=== PATIENT | female | born 1965 | race Caucasian/White ===

== ENCOUNTER 2019-04-24 11:35 | Emergency (ER) | payer BC, OTHER ==
[2019-04-24 11:43] VITALS: BP 151/101; TEMP 98.7
[2019-04-24] MEDS ORDERED: diphenhydrAMINE 50 MG/ML 1 ML VIAL IVP STA (11:58)
--- NOTE | 2019-04-24 13:15 | ED ---
General Adult HPI - General Chief complaint: Recheck/Abnormal Lab/Rx Stated complaint: Allergic reaction Time Seen by Provider: 04/24/19 11:46 Source: patient Mode of arrival: ambulatory Limitations: no limitations - History of Present Illness Initial comments: Patient is a 54-year-old female presenting to emergency Department complaints of swelling of her top and that started early this morning. Patient states she was seen in urgent care 2 days ago for bronchitis and was given a Medrol Dosepak to start. Patient states she took the first day's worth yesterday and the swelling started today. Patient states she is not taking any other new medications or new foods. Patient states she's never had an ALLERGIC reaction like this before. Patient denies any fever, chills, difficulty breathing, chest pain, throat pain, rashes, hives. Patient has no other complaints at this time. Patient states she has not taken any medication for this. Upon arrival to the ER, vital signs are stable. - Related Data Previous Rx's Medication Instructions Recorded Azithromycin [Zithromax Z-pack] 0 mg PO DIRECTED #1 pack 04/24/19 Allergies Allergy/AdvReac Type Severity Reaction Status Date / Time codeine Allergy Unknown Verified 04/24/19 11:38 Review of Systems ROS Statement: Those systems with pertinent positive or pertinent negative responses have been documented in the HPI. ROS Other: All systems not noted in ROS Statement are negative. Past Medical History Additional Past Medical History / Comment(s): CVA 2010 History of Any Multi-Drug Resistant Organisms: None Reported Past Surgical History: Appendectomy, Section, Tonsillectomy Past Psychological History: No Psychological Hx Reported Smoking Status: Never smoker Past Alcohol Use History: Occasional Past Drug Use History: None Reported General Exam - General Exam Comments Initial Comments: GENERAL: Well-appearing, well-nourished and in no acute distress. HEAD: Atraumatic, normocephalic. EYES: Pupils equal round and reactive to light, extraocular movements intact, sclera anicteric, conjunctiva are normal. ENT: TMs normal, nares patent, oropharynx clear without exudates. Moist mucous membranes. Tongue is mildly swollen. NECK: Normal range of motion, supple without lymphadenopathy or JVD. LUNGS: Breath sounds clear to auscultation bilaterally and equal. No wheezes rales or rhonchi. HEART: Regular rate and rhythm without murmurs, rubs or gallops. ABDOMEN: Soft, nontender, normoactive bowel sounds. No guarding, no rebound. No masses appreciated. : Deferred EXTREMITIES: Normal range of motion, no pitting or edema. No clubbing or cyanosis. NEUROLOGICAL: Cranial nerves II through XII grossly intact. Normal speech, normal gait. PSYCH: Normal mood, normal affect. SKIN: Warm, Dry, normal turgor, no rashes or lesions noted. Limitations: no limitations Course Vital Signs 04/24/19 04/24/19 11:39 13:25 Temperature 98.7 F Pulse Rate 106 H 90 Respiratory 18 16 Rate Blood Pressure 151/101 O2 Sat by Pulse 94 L Oximetry Medical Decision Making - Medical Decision Making Patient is a 54-year-old female presenting with a possible ALLERGIC reaction to her Medrol Dosepak. Patient has a slightly swollen tongue. Patient was given 50 mg of Benadryl IV and reports improvement in her symptoms. Patient's vital signs remained stable and she has no difficulty in breathing or swallowing. Patient is drinking water without difficulty. Patient is stable for discharge at this time. Recommended to patient to continue with Benadryl today and tomorrow and to follow up with her PCP tomorrow. Patient will be given a Z-Justo for her ongoing bronchitis and will not continue with the Medrol Dosepak. Patient is in agreement with this plan of care. Return parameters were discussed with the patient she verbalized understanding. Case discussed with Dr. Cannon. Disposition Clinical Impression: Mild tongue swelling Disposition: HOME SELF-CARE Condition: Stable Instructions (If sedation given, give patient instructions): General Allergic Reaction (ED) Additional Instructions: Please return to the Emergency Department if symptoms worsen or any other concerns. Continue taking Benadryl for the next 48 hours as discussed. Take antibiotic as prescribed. Follow-up with PCP tomorrow. Prescriptions: Azithromycin [Zithromax Z-pack] 0 mg PO DIRECTED #1 pack Is patient prescribed a controlled substance at d/c from ED?: No Referrals: Jose Luis Ricketts MD [Primary Care Provider] - 1-2 days
[2019-04-24 13:26] VITALS: PULSE 90; RESP 16
== END 2019-04-24 13:28 | disposition home or self-care (01) ==
LOC: EC 11:35
DX: K14.8 Other diseases of tongue (principal); Z86.73 Personal history of transient ischemic attack (TIA), and cerebral infarction without residual deficits; Z88.5 Allergy status to narcotic agent
CPT/HCPCS: 99283; 96374; J1200

== ENCOUNTER 2019-05-29 13:32 | Emergency (ER) | payer OTHER ==
[2019-05-29 13:43] VITALS: RESP 18
[2019-05-29] MEDS ORDERED: AMOXIC-POT CLAV 875MG STARTER 2 EACH TABLET PO STA (14:09)
[2019-05-29] MEDS ORDERED: DIPH,PERTUS(ACELL)TETVAC-LF 0.5 ML VIAL IM ONE (14:09)
--- NOTE | 2019-05-29 14:11 | ED ---
Animal Bite HPI - General Chief Complaint: Animal Bite Stated Complaint: dog bite on hand Time Seen by Provider: 05/29/19 14:03 Source: patient Mode of arrival: ambulatory Limitations: no limitations - History of Present Illness Initial Comments: 54-year-old female presenting today for chief complaint of right hand laceration after dog bite. Patient states she attempted to break up a fight between her 2 dogs. She is unsure which one. Her states that one is old and has loose teeth. Patient states that she sustained a laceration on her hand the ventral aspect near the space between the index finger and thumb. Patient states the bleeding is controlled however she is unsure of her last tetanus. Patient states she was told by the fire department that she may need to come to the emergency room for suture repair. Patient denies any other areas laceration. Patient denies any other injuries or complaints. Patient denies any penicillin ALLERGIES. Patient BP noted to be elevated on arrival, no complaints such as chest pain, headache, SOB, leg swelling, nausea, abdominal pain, back pain. Patient refused BP treatment stating she will take home meds when she is home, she forgot to take them with the "excitement going on" this morning. - Related Data Previous Rx's Medication Instructions Recorded Azithromycin [Zithromax Z-pack] 0 mg PO DIRECTED #1 pack 04/24/19 Amoxicillin/Potassium Clav 1 tab PO Q12HR 7 Days #14 tab 05/29/19 [Augmentin 875-125 Tablet] Allergies Allergy/AdvReac Type Severity Reaction Status Date / Time codeine Allergy Unknown Verified 05/29/19 13:44 Review of Systems ROS Statement: Those systems with pertinent positive or pertinent negative responses have been documented in the HPI. ROS Other: All systems not noted in ROS Statement are negative. Past Medical History Past Medical History: COPD, CVA/TIA, Hyperlipidemia, Hypertension Additional Past Medical History / Comment(s): CVA 2011 History of Any Multi-Drug Resistant Organisms: None Reported Past Surgical History: Appendectomy, Section, Tonsillectomy Past Psychological History: No Psychological Hx Reported Smoking Status: Current every day smoker Past Alcohol Use History: Occasional Past Drug Use History: None Reported General Exam Limitations: no limitations Course Vital Signs 05/29/19 13:39 Temperature 99.6 F Pulse Rate 83 Respiratory 18 Rate Blood Pressure 180/133 O2 Sat by Pulse 95 Oximetry Procedures - Laceration Laceration #1 Consent Obtained: verbal consent Indication: laceration Site: hand Size (cm): 2 Description: linear Depth: simple, single layer Pre-repair: wound explored, irrigated extensively, deep structures intact Type of Sutures: nylon Size of Sutures: 5-0 Number of Sutures: 3 (very loosely approximated) Technique: simple, interrupted Patient Tolerated Procedure: well, no complications Additional Comments: Patient was offered local anesthetic however she states she would like to perform procedure without, no lidocaine used. pateint tolerated procedure well with minimal bleeding < 1 cc Medical Decision Making - Medical Decision Making 34-year-old female presenting today for dog bite. Patient had a gaping wound between the index finger and thumb of blood with any movement opened up. Shannan ent preferred suture I did discuss the risk of infection with closure of a dog bite. Patient with a to proceed. 3. Loosely approximated sutures were placed to help control bleeding and the gaping of wound. Patient had no foreign body, tetanus updated, wound was cleansed extensively prior to closure and bandaged after, and patient started on antibiotics-Augmentin and signs of infection discussed, as well as suture care and return parameters. Patient verbalized understanding and patient was discharged appearing well. Disposition Clinical Impression: Dog bite, Hand laceration Disposition: HOME SELF-CARE Condition: Good Instructions (If sedation given, give patient instructions): Animal Bite (ED) Additional Instructions: Please use medication as discussed. Please follow-up with family doctor in the next 2 days, for wound check. Return for removal of the 1 suture in 7 days. Please return to emergency room if the symptoms increase or worsen or for any other concerns-redness, increasing pain/swellling or drainage, fever. Prescriptions: Amoxicillin/Potassium Clav [Augmentin 875-125 Tablet] 1 tab PO Q12HR 7 Days #14 tab Is patient prescribed a controlled substance at d/c from ED?: No Referrals: Jose Luis Ricketts MD [Primary Care Provider] - 1-2 days Time of Disposition: 14:10
--- NOTE | 2019-05-29 14:48 | XR ---
EXAMINATION TYPE: XR hand limited RT DATE OF EXAM: 05/29/2019 COMPARISON: NONE HISTORY: 54-year-old female rule out foreign body (tooth) after dog bite TECHNIQUE: 2 views FINDINGS: No acute fracture, subluxation, or dislocation. No retained radiopaque foreign body identified. IMPRESSION: No retained radiopaque foreign body identified. No acute osseous abnormality seen.
[2019-05-29 15:39] VITALS: BP 174/115; PULSE 84; TEMP 99
== END 2019-05-29 15:32 | disposition home or self-care (01) ==
LOC: EC 13:32
DX: S61.411A Laceration without foreign body of right hand, initial encounter (principal); I10 Essential (primary) hypertension; F17.200 Nicotine dependence, unspecified, uncomplicated; Z23 Encounter for immunization; Z88.5 Allergy status to narcotic agent; Z86.73 Personal history of transient ischemic attack (TIA), and cerebral infarction without residual deficits; W54.0XXA Bitten by dog, initial encounter
CPT/HCPCS: 12001; 90471; 90715; 99283

== ENCOUNTER 2020-02-13 07:57 | Emergency (ER) | payer OTHER ==
[2020-02-13] MEDS ORDERED: MORPHINE SULFATE 4 MG/ML SYRINGE IM STA (08:10)
[2020-02-13] MEDS ORDERED: KETOROLAC 15 MG/ML 1 ML VIAL IM STA (08:11)
--- NOTE | 2020-02-13 08:13 | ED ---
Upper Extremity HPI - General Chief Complaint: Extremity Injury, Upper Stated Complaint: fall, shoulder injury Time Seen by Provider: 02/13/20 08:05 Source: patient, RN notes reviewed, old records reviewed Mode of arrival: ambulatory Limitations: no limitations - History of Present Illness Initial Comments: Patient 4-year-old female presents the ER today for evaluation with complaints of left shoulder pain. Patient reports that she tripped down on the stairs on her shoe and fell down approximately 7 steps on her left shoulder. Patient states that she will do this at 11:00 last night. Patient states that she has some pain with range of motion of the elbow and shoulder. Patient reports that she's had no previous injuries to this arm. Patient denies chest pain shortness of breath. Patient denies head or neck injury. - Related Data Home Medications Medication Instructions Recorded Confirmed Acetaminophen Tab [Tylenol Tab] 1,000 mg PO Q6HR PRN 02/13/20 02/13/20 Amitriptyline HCl [Elavil] 150 mg PO HS 02/13/20 02/13/20 Citalopram Hydrobromide [CeleXA] 60 mg PO DAILY 02/13/20 02/13/20 Ipratropium/Albuter 20-100Mcg 1 puff INHALATION RT-QID PRN 02/13/20 02/13/20 [Combivent Respimat 20-100Mcg Inhaler] Lisinopril-Hctz 20-25 mg 1 tab PO DAILY 02/13/20 02/13/20 [Zestoretic 20-25] Simvastatin [Zocor] 40 mg PO HS 02/13/20 02/13/20 amLODIPine [Norvasc] 5 mg PO DAILY 02/13/20 02/13/20 Previous Rx's Medication Instructions Recorded HYDROcodone/APAP 5-325MG [Scuddy 1 tab PO Q6HR PRN 3 Days #12 tab 02/13/20 5-325] Ibuprofen [Motrin] 600 mg PO Q6HR PRN #20 tab 02/13/20 Allergies Allergy/AdvReac Type Severity Reaction Status Date / Time codeine Allergy Unknown Verified 02/13/20 09:14 Review of Systems ROS Statement: Those systems with pertinent positive or pertinent negative responses have been documented in the HPI. ROS Other: All systems not noted in ROS Statement are negative. Past Medical History Past Medical History: COPD, CVA/TIA, Hyperlipidemia, Hypertension Additional Past Medical History / Comment(s): CVA 2010 History of Any Multi-Drug Resistant Organisms: None Reported Past Surgical History: Appendectomy, Section, Tonsillectomy Past Psychological History: No Psychological Hx Reported Smoking Status: Current every day smoker Past Alcohol Use History: Occasional Past Drug Use History: None Reported General Exam Limitations: no limitations General appearance: alert, in no apparent distress Head exam: Present: atraumatic, normocephalic, normal inspection Eye exam: Present: normal appearance, PERRL, EOMI. Absent: scleral icterus, conjunctival injection, periorbital swelling ENT exam: Present: normal exam, mucous membranes moist Neck exam: Present: normal inspection. Absent: tenderness, meningismus, lymphadenopathy Respiratory exam: Present: normal lung sounds bilaterally. Absent: respiratory distress, wheezes, rales, rhonchi, stridor Cardiovascular Exam: Present: regular rate, normal rhythm, normal heart sounds. Absent: systolic murmur, diastolic murmur, rubs, gallop, clicks GI/Abdominal exam: Present: soft, normal bowel sounds. Absent: distended, tenderness, guarding, rebound, rigid Left Shoulder Exam: Present: tenderness, swelling. Absent: normal inspection Upper Arm exam: Present: full ROM. Absent: normal inspection Elbow exam: Absent: normal inspection, full ROM Forearm Wrist exam: Present: normal inspection, full ROM Course Vital Signs 02/13/20 02/13/20 08:00 09:03 Temperature 98.5 F Pulse Rate 107 H 80 Respiratory 16 18 Rate Blood Pressure 177/116 119/68 O2 Sat by Pulse 96 98 Oximetry Procedures - Orthopedic Splinting/Casting Injury #1 Side: left Upper Extremity Injury Location: elbow Upper Extremity Immobilizer: sling/shoulder immobilizer, posterior splint, Gokul wrap, synthetic pre-padded splint Additional Comments: Patient was reevaluated neurovascularly intact. Medical Decision Making - Medical Decision Making Patient is a pleasant 54-year-old female who presents to the ER today for elbow shoulder pain after falling on the stairs. Denies any head or neck pain. Patient has evidence of left elbow fracture on x-ray. Also mentioned concern for left sixth rib fracture. Patient will receive chest x-ray. He was placed in a posterior splint. She is Intact. Chest was placed in a sling as I discussed with the pain with shoulder range of motion she likely injured her rotator cuff as well. Patient advised close orthopedic follow-up. She is given incentive spirometer for rib x-ray. 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 - Radiology Data Radiology results: report reviewed Evidence of left radial head fracture. No fracture dislocation left shoulder. Correlate with for history of left sixth rib fracture. Chest x-ray shows no acute cardio primary process. No acute displaced left- sided rib fractures. Suspect chronic posterior lateral left sixth rib fracture. Disposition Clinical Impression: Fall, Elbow fracture, left, Rotator cuff injury, Rib fracture Disposition: HOME SELF-CARE Condition: Good Instructions (If sedation given, give patient instructions): Elbow Fracture (ED), Rib Fracture (ED) Additional Instructions: Please use medication as discussed. should take frequent deep breaths to avoid developing pneumonia with evidence of rib fractures on x-ray. Patient should remain in the sling and splint until seen by orthopedic. Please return to the emergency room if your symptoms increase or worsen or for any other concerns. Prescriptions: Ibuprofen [Motrin] 600 mg PO Q6HR PRN #20 tab PRN Reason: Pain HYDROcodone/APAP 5-325MG [Scuddy 5-325] 1 tab PO Q6HR PRN 3 Days #12 tab PRN Reason: Pain Is patient prescribed a controlled substance at d/c from ED?: Yes If prescribed controlled substance>3 days was MAPS reviewed?: Prescribed <3 Days If opioid is for acute pain is fill amount 7 days or less?: Yes If Rx opioid, was Start Talking consent form obtained?: Yes Referrals: Jose Luis Ricketts MD [Primary Care Provider] - 1-2 days Darius Wright PAC [PHYSICIAN MENTAL HEALTH COORDINATOR] - 1-2 days Time of Disposition: 09:21
--- NOTE | 2020-02-13 08:55 | XR ---
Left shoulder HISTORY: Trauma and pain 3 views of the left shoulder Bone mineralization, joint spaces and alignment are maintained. Left lung apex as visualized is lon l. There is a fracture of the posterior left sixth rib with bayonet apposition which shows probable h ealing. IMPRESSION: No fracture or dislocation within the shoulder, correlate for history of left 6th rib fra cture.
--- NOTE | 2020-02-13 08:57 | XR ---
Left elbow HISTORY: Left elbow pain 3 views of the left elbow There is a radial head fracture present without significant displacement or depression. There is soft tissue swelling and a joint effusion. Small ossific density is present medially at the elbow measuri ng 3 mm which is indeterminate, no definite donor site. IMPRESSION: Left radial head fracture
[2020-02-13 09:44] VITALS: PULSE 80; RESP 18
--- NOTE | 2020-02-13 09:48 | XR ---
EXAMINATION TYPE: XR ribs LT w pa chest xray DATE OF EXAM: 02/13/2020 CLINICAL HISTORY: Chest and left-sided rib pain after fall injury. TECHNIQUE: Single frontal view of the chest is obtained. A frontal and oblique images the left-sided ribs are acquired. COMPARISON: None FINDINGS: There is chronic parenchymal changes bilaterally without suspicious focal air space opacit y, pleural effusion, or pneumothorax seen. The cardiac silhouette size is within normal limits. Frac ture deformity left posterolateral sixth rib. Dedicated images of left-sided ribs suggests subacute or chronic fracture posterior lateral left sixt h rib. Chronic age is favored. No acute displaced left-sided rib fractures are present. Overlying sof t tissue is unremarkable.. IMPRESSION: 1. No acute cardiopulmonary process. 2. No acute displaced left-sided rib fractures. Suspect chronic posterolateral lateral left sixth rib fracture.
[2020-02-13 10:08] VITALS: BP 141/91; TEMP 97.8
== END 2020-02-13 10:05 | disposition home or self-care (01) ==
LOC: EC 07:57
DX: S52.125A Nondisplaced fracture of head of left radius, initial encounter for closed fracture (principal); S22.32XA Fracture of one rib, left side, initial encounter for closed fracture; E78.5 Hyperlipidemia, unspecified; J44.9 Chronic obstructive pulmonary disease, unspecified; I10 Essential (primary) hypertension; F17.200 Nicotine dependence, unspecified, uncomplicated; Z79.899 Other long term (current) drug therapy; Z88.5 Allergy status to narcotic agent; Z86.73 Personal history of transient ischemic attack (TIA), and cerebral infarction without residual deficits; W10.9XXA Fall (on) (from) unspecified stairs and steps, initial encounter; Y92.009 Unspecified place in unspecified non-institutional (private) residence as the place of occurrence of the external cause
CPT/HCPCS: 71101; 73030; 73080; 99284; 96372 ×2; 29105; J2270; J1885

== ENCOUNTER 2021-03-21 16:04 | Emergency (ER) | payer OTHER ==
[2021-03-21 16:47] VITALS: TEMP 98.2
--- NOTE | 2021-03-21 19:50 | ED ---
General Adult HPI - General Chief complaint: Arrhythmia/Palpitations Stated complaint: Heart racing, light headed Time Seen by Provider: 03/21/21 19:25 Source: patient, RN notes reviewed, old records reviewed Mode of arrival: wheelchair Limitations: no limitations - History of Present Illness Initial comments: 56-year-old well-appearing female presents to the emergency room with complaints of palpitations and lightheadedness. Patient states that she's been under incredible amount of stress at home and her landlord is talking about evicting her sending text messages to been having increased palpitations. She states that she's been out of her medications for high blood pressure since January. She has been smoking a pack and a half a day. She denies any chest pain or shortness of breath. She does have a history of an intracranial bleed, stroke in 2010, COPD, hypertension. She states that she's also been having diarrhea every time she eats. She denies any hematochezia or hematemesis. She denies any fevers. She did get the coronavirus vaccine -: days(s) (5) Location: head, chest Severity scale (1-10): 5 Quality: aching Consistency: intermittent Improves with: other (Lying backward) Worsens with: other (Sitting up) Associated Symptoms: headaches (Diarrhea), other - Related Data Home Medications Medication Instructions Recorded Confirmed Acetaminophen Tab [Tylenol Tab] 1,000 mg PO Q6HR PRN 02/13/20 02/13/20 Amitriptyline HCl [Elavil] 150 mg PO HS 02/13/20 02/13/20 Citalopram Hydrobromide [CeleXA] 60 mg PO DAILY 02/13/20 02/13/20 Ipratropium/Albuter 20-100Mcg 1 puff INHALATION RT-QID PRN 02/13/20 02/13/20 [Combivent Respimat 20-100Mcg Inhaler] Simvastatin [Zocor] 40 mg PO HS 02/13/20 02/13/20 Previous Rx's Medication Instructions Recorded HYDROcodone/APAP 5-325MG [[place] 1 tab PO Q6HR PRN 3 Days #12 tab 02/13/20 5-325] Ibuprofen [Motrin] 600 mg PO Q6HR PRN #20 tab 02/13/20 Lisinopril-Hctz 20-25 mg 1 tab PO DAILY 30 Days #30 tab 03/21/21 [Zestoretic 20-25] amLODIPine [Norvasc] 5 mg PO DAILY 30 Days #30 tab 03/21/21 Allergies Allergy/AdvReac Type Severity Reaction Status Date / Time codeine Allergy Unknown Verified 03/21/21 16:45 Review of Systems ROS Statement: Those systems with pertinent positive or pertinent negative responses have been documented in the HPI. ROS Other: All systems not noted in ROS Statement are negative. Past Medical History Past Medical History: COPD, CVA/TIA, Hyperlipidemia, Hypertension Additional Past Medical History / Comment(s): CVA 2011 History of Any Multi-Drug Resistant Organisms: None Reported Past Surgical History: Appendectomy, Section, Tonsillectomy Past Psychological History: No Psychological Hx Reported Smoking Status: Current every day smoker Past Alcohol Use History: Occasional Past Drug Use History: None Reported General Exam Limitations: no limitations General appearance: alert, in no apparent distress Head exam: Present: atraumatic, normocephalic, normal inspection Eye exam: Present: normal appearance, EOMI ENT exam: Present: normal exam, normal oropharynx, mucous membranes moist Neck exam: Present: normal inspection, full ROM. Absent: tenderness, meningismus, lymphadenopathy Respiratory exam: Present: normal lung sounds bilaterally. Absent: respiratory distress, wheezes, rales, rhonchi, stridor, chest wall tenderness, accessory mus josué use Cardiovascular Exam: Present: regular rate, normal rhythm, normal heart sounds. Absent: systolic murmur, diastolic murmur, rubs, gallop, clicks GI/Abdominal exam: Present: soft, normal bowel sounds. Absent: distended, tenderness, guarding, rebound, rigid Back exam: Absent: tenderness, CVA tenderness (R), CVA tenderness (L) Neurological exam: Present: alert, oriented X3 Psychiatric exam: Present: anxious Skin exam: Present: warm, dry, intact, normal color. Absent: rash, cyanosis, diaphoretic Course Vital Signs 03/21/21 03/21/21 03/21/21 16:45 21:56 23:17 Temperature 98.2 F Pulse Rate 84 81 98 Respiratory 18 20 Rate Blood Pressure 213/105 194/106 194/108 O2 Sat by Pulse 100 94 L Oximetry EKG Findings - EKG Results: EKG: sinus rhythm (Ventricular rate 79, [place] interval 0.120, QRS 0.78, QTC 0.463) Medical Decision Making - Medical Decision Making This is a well-appearing 56-year-old female, alert and oriented 4, complaining of palpitations with increased stress at home. Patient states that she was getting aggressive threats for eviction from her landlord which was causing her to have palpitations. She also states that she's been out of her blood pressure medication since January and has not followed up with her primary care do ctor. She states that she's having transportation problems to get to appointments. She was given her prescribed medications in addition to hydralazine in the emergency room. Troponin is 0.012, no acute changes on her EKG. Chest x-ray shows no acute cardiopulmonary disease or pleural effusion. Cardiac mediastinum are normal. Case discussed with Dr. Faith. - Lab Data Result diagrams: 03/21/21 20:25 03/21/21 20:25 Lab Results 03/21/21 03/21/21 03/21/21 Range/Units 20:25 20:25 20:25 WBC 10.3 (3.8-10.6) k/uL RBC 5.69 H (3.80-5.40) m/uL Hgb 18.5 H (11.4-16.0) gm/dL Hct 53.4 H (34.0-46.0) % MCV 93.9 (80.0-100.0) fL MCH 32.6 (25.0-35.0) pg MCHC 34.7 (31.0-37.0) g/dL RDW 12.6 (11.5-15.5) % Plt Count 227 (150-450) k/uL MPV 9.4 Neutrophils % 63 % Lymphocytes % 27 % Monocytes % 5 % Eosinophils % 1 % Basophils % 1 % Neutrophils # 6.4 (1.3-7.7) k/uL Lymphocytes # 2.8 (1.0-4.8) k/uL Monocytes # 0.5 (0-1.0) k/uL Eosinophils # 0.1 (0-0.7) k/uL Basophils # 0.1 (0-0.2) k/uL PT 10.8 (9.0-12.0) sec INR 1.0 (<1.2) APTT 24.5 (22.0-30.0) sec Sodium 136 L (137-145) mmol/L Potassium 3.6 (3.5-5.1) mmol/L Chloride 104 (98-107) mmol/L Carbon Dioxide 21 L (22-30) mmol/L Anion Gap 11 mmol/L BUN 6 L (7-17) mg/dL Creatinine 0.61 (0.52-1.04) mg/dL Est GFR (CKD-EPI)AfAm >90 (>60 ml/min/1.73 sqM) Est GFR (CKD-EPI)NonAf >90 (>60 ml/min/1.73 sqM) Glucose 98 (74-99) mg/dL Calcium 9.5 (8.4-10.2) mg/dL Magnesium 2.0 (1.6-2.3) mg/dL Total Bilirubin 0.9 (0.2-1.3) mg/dL AST 104 H (14-36) U/L ALT 87 H (4-34) U/L Alkaline Phosphatase 105 (38-126) U/L Troponin I (0.000-0.034) ng/mL Total Protein 8.3 H (6.3-8.2) g/dL Albumin 4.5 (3.5-5.0) g/dL 03/21/ Range/Units 20:25 WBC (3.8-10.6) k/uL RBC (3.80-5.40) m/uL Hgb (11.4-16.0) gm/dL Hct (34.0-46.0) % MCV (80.0-100.0) fL MCH (25.0-35.0) pg MCHC (31.0-37.0) g/dL RDW (11.5-15.5) % Plt Count (150-450) k/uL MPV Neutrophils % % Lymphocytes % % Monocytes % % Eosinophils % % Basophils % % Neutrophils # (1.3-7.7) k/uL Lymphocytes # (1.0-4.8) k/uL Monocytes # (0-1.0) k/uL Eosinophils # (0-0.7) k/uL Basophils # (0-0.2) k/uL PT (9.0-12.0) sec INR (<1.2) APTT (22.0-30.0) sec Sodium (137-145) mmol/L Potassium (3.5-5.1) mmol/L Chloride (98-107) mmol/L Carbon Dioxide (22-30) mmol/L Anion Gap mmol/L BUN (7-17) mg/dL Creatinine (0.52-1.04) mg/dL Est GFR (CKD-EPI)AfAm (>60 ml/min/1.73 sqM) Est GFR (CKD-EPI)NonAf (>60 ml/min/1.73 sqM) Glucose (74-99) mg/dL Calcium (8.4-10.2) mg/dL Magnesium (1.6-2.3) mg/dL Total Bilirubin (0.2-1.3) mg/dL AST (14-36) U/L ALT (4-34) U/L Alkaline Phosphatase (38-126) U/L Troponin I <0.012 (0.000-0.034) ng/mL Total Protein (6.3-8.2) g/dL Albumin (3.5-5.0) g/dL Disposition Clinical Impression: Palpitations, Hypertension Disposition: HOME SELF-CARE Condition: Good Instructions (If sedation given, give patient instructions): Heart Palpitations (ED), Hypertension (ED) Additional Instructions: Take medications as prescribed and follow-up with the primary care doctor this week. Return to the emergency room with any new or worsening symptoms including increased chest pain or shortness of breath. Prescriptions: amLODIPine [Norvasc] 5 mg PO DAILY 30 Days #30 tab Lisinopril-Hctz 20-25 mg [Zestoretic 20-25] 1 tab PO DAILY 30 Days #30 tab Is patient prescribed a controlled substance at d/c from ED?: No Referrals: Jose Luis Ricketts MD [Primary Care Provider] - 1-2 days Time of Disposition: 00:28
[2021-03-21] MEDS ORDERED: amLODIPine 5 MG TAB PO STA (19:52)
--- NOTE | 2021-03-21 20:33 | XR ---
EXAMINATION TYPE: XR chest 2V DATE OF EXAM: 03/21/2021 COMPARISON: 02/13/2020 HISTORY: Dysrhythmia TECHNIQUE: FINDINGS: Heart and mediastinum are normal. Lungs are clear. Diaphragm is normal. There is old left s zuleyka healed rib fracture. There is no pleural effusion. There are chest leads. IMPRESSION: No active cardiopulmonary disease. No change.
[2021-03-21 20:35] LABS: Basophils # (A) 0.1 k/uL (0-0.2); Basophils % (A) 1 %; Eosinophils # (A) 0.1 k/uL (0-0.7); Eosinophils % (A) 1 %; HCT 53.4 % (34.0-46.0); HGB 18.5 gm/dL (11.4-16.0); Lymphocytes # (A) 2.8 k/uL (1.0-4.8); Lymphocytes % (A) 27 %; MCH 32.6 pg (25.0-35.0); MCHC 34.7 g/dL (31.0-37.0); MCV 93.9 fL (80.0-100.0); Mean Platelet Volume 9.4; Monocytes # (A) 0.5 k/uL (0-1.0); Monocytes % (A) 5 %; Neutrophils # (A) 6.4 k/uL (1.3-7.7); Neutrophils % (A) 63 %; Platelet Count 227 k/uL (150-450); RBC 5.69 m/uL (3.80-5.40); RDW 12.6 % (11.5-15.5); WBC 10.3 k/uL (3.8-10.6)
[2021-03-21 20:41] LABS: ALT 87 U/L (4-34); AST 104 U/L (14-36); African American GFR (CKD) >90 (>60 ml/min/1.73 sqM); Albumin 4.5 g/dL (3.5-5.0); Alkaline Phosphatase 105 U/L (38-126); Anion Gap 11 mmol/L; Blood Urea Nitrogen 6 mg/dL (7-17); Calcium 9.5 mg/dL (8.4-10.2); Carbon Dioxide 21 mmol/L (22-30); Chloride 104 mmol/L (98-107); Glucose 98 mg/dL (74-99); Non-African American GFR(CKD) >90 (>60 ml/min/1.73 sqM); Partial Thromboplastin Time 24.5 sec (22.0-30.0); Potassium 3.6 mmol/L (3.5-5.1); Prothrombin Time 10.8 sec (9.0-12.0); Sodium 136 mmol/L (137-145); Total Bilirubin 0.9 mg/dL (0.2-1.3); Total Protein 8.3 g/dL (6.3-8.2)
[2021-03-21] MEDS ORDERED: hydrALAZINE HCL 20 MG/ML 1 ML VIAL IVP STA ×2 (21:56→22:46)
[2021-03-21] MEDS ORDERED: LISINOPRIL-HCTZ 20-25 MG 1 EACH TAB PO STA (22:47)
[2021-03-21] MEDS ORDERED: LORazepam 2 MG/ML INJ IV STA (23:27)
[2021-03-22 03:48] VITALS: BP 126/64; PULSE 100; RESP 18
== END 2021-03-22 04:38 | disposition home or self-care (01) ==
LOC: EC 16:04
DX: R00.2 Palpitations (principal); I10 Essential (primary) hypertension; E78.5 Hyperlipidemia, unspecified; J44.9 Chronic obstructive pulmonary disease, unspecified; F17.200 Nicotine dependence, unspecified, uncomplicated; Z88.5 Allergy status to narcotic agent; Z86.73 Personal history of transient ischemic attack (TIA), and cerebral infarction without residual deficits; Z90.49 Acquired absence of other specified parts of digestive tract; Z90.89 Acquired absence of other organs
CPT/HCPCS: 99285; 96374; 96375; 96376; 93005; 80053; 83735; 84484; 85025; 85610; 85730; 71046; J2060; J0360

== ENCOUNTER 2021-06-23 20:05 | Emergency (ER) | payer OTHER ==
[2021-06-23 20:58] VITALS: TEMP 97.9
[2021-06-23] MEDS ORDERED: SODIUM CHLORIDE 0.9% 1,000 ML IV STA (21:25)
[2021-06-23] MEDS ORDERED: SODIUM CHLORIDE 0.9% 500 ML 500 ML IV STA (21:25)
--- NOTE | 2021-06-23 21:31 | ED ---
Female Urogenital HPI - General Chief complaint: Vaginal Bleeding Stated complaint: Back pain,Irregular vaginal bleeding Time Seen by Provider: 06/23/21 21:15 Source: patient Mode of arrival: ambulatory Limitations: no limitations - History of Present Illness Initial comments: This patient is a 56-year-old woman who presents here to be evaluated tonight after syncopal episode. The patient relates she was last in her usual state of health proximally 2 days ago. On Sunday morning she woke up and she noted she was having some right lower back pain. She states that it was cramping and aching. Proximally 20 hours ago she started to have vaginal bleeding. She states she passed moderate amount of blood with some clots as well. She went back to bed and then the bleeding recurred around 5 PM. She states that subsequent only she went back to use the bathroom and she passed out while she was on the phone talking with her daughter. She did not note chest pain, dyspnea. No vomiting or diarrhea. MD Complaint: vaginal bleeding Onset/Timin -: hour(s) Location: other (Back) Severity: moderate Quality: cramping Consistency: constant Improves with: none Worsens with: none Associated Symptoms: vaginal bleeding, syncope - Related Data Home Medications Medication Instructions Recorded Confirmed Acetaminophen Tab [Tylenol Tab] 500 mg PO Q6HR PRN 02/13/20 06/23/21 Amitriptyline HCl [Elavil] 50 mg PO HS 02/13/20 06/23/21 Citalopram Hydrobromide [CeleXA] 40 mg PO DAILY 02/13/20 06/23/21 Ipratropium/Albuter 20-100Mcg 2 puff INHALATION RT-QID PRN 02/13/20 06/23/21 [Combivent Respimat 20-100Mcg Inhaler] Simvastatin [Zocor] 40 mg PO HS 02/13/20 06/23/21 Furosemide [Lasix] 20 mg PO DAILY 06/23/21 06/23/21 amLODIPine [Norvasc] 10 mg PO DAILY 06/23/21 06/23/21 Previous Rx's Medication Instructions Recorded Lisinopril-Hctz 20-25 mg 1 tab PO DAILY 30 Days #30 tab 03/21/21 [Zestoretic 20-25] Allergies Allergy/AdvReac Type Severity Reaction Status Date / Time codeine Allergy Unknown Verified 06/23/21 22:10 Review of Systems ROS Statement: Those systems with pertinent positive or pertinent negative responses have been documented in the HPI. ROS Other: All systems not noted in ROS Statement are negative. Constitutional: Denies: fever, chills Respiratory: Denies: cough, dyspnea Cardiovascular: Reports: syncope. Denies: chest pain, palpitations Gastrointestinal: Denies: abdominal pain, nausea, vomiting, diarrhea Genitourinary: Reports: as per HPI, abnormal menses. Denies: dysuria, hematuria Musculoskeletal: Reports: as per HPI, back pain Skin: Denies: rash Neurological: Denies: headache, weakness, numbness Past Medical History Past Medical History: COPD, CVA/TIA, Hyperlipidemia, Hypertension Additional Past Medical History / Comment(s): CVA 2010 History of Any Multi-Drug Resistant Organisms: None Reported Past Surgical History: Appendectomy, Section, Tonsillectomy Past Psychological History: No Psychological Hx Reported Smoking Status: Current every day smoker Past Alcohol Use History: Occasional Past Drug Use History: None Reported General Exam Limitations: no limitations General appearance: alert, in no apparent distress Head exam: Present: atraumatic, normocephalic Eye exam: Present: normal appearance. Absent: scleral icterus, conjunctival injection ENT exam: Present: normal oropharynx Neck exam: Present: normal inspection Respiratory exam: Present: normal lung sounds bilaterally. Absent: respiratory distress, wheezes, rales, rhonchi, stridor Cardiovascular Exam: Present: regular rate, normal rhythm, normal heart sounds. Absent: systolic murmur, diastolic murmur, rubs, gallop GI/Abdominal exam: Present: soft. Absent: distended, tenderness, guarding, rebound, rigid, mass Extremities exam: Present: normal inspection, normal capillary refill. Absent: pedal edema, calf tenderness Back exam: Present: normal inspection. Absent: CVA tenderness (R), CVA tenderness (L) Neurological exam: Present: alert Skin exam: Present: warm, dry, intact, normal color. Absent: rash Course Vital Signs 06/23/21 06/23/21 06/23/21 20:55 22:48 23:28 Temperature 97.9 F Pulse Rate 98 74 79 Respiratory 20 18 18 Rate Blood Pressure 105/64 131/81 128/83 O2 Sat by Pulse 98 97 96 Oximetry 06/24/21 00:36 Temperature Pulse Rate 84 Respiratory 18 Rate Blood Pressure 171/106 O2 Sat by Pulse 96 Oximetry Medical Decision Making - Lab Data Result diagrams: 06/23/21 22:00 06/23/21 22:00 Lab Results 06/23/21 06/23/21 06/23/21 Range/Units 20:50 22:00 22:00 WBC 15.2 H (3.8-10.6) k/uL RBC 3.99 (3.80-5.40) m/uL Hgb 13.0 (11.4-16.0) gm/dL Hct 39.4 (34.0-46.0) % MCV 98.7 (80.0-100.0) fL MCH 32.6 (25.0-35.0) pg MCHC 33.1 (31.0-37.0) g/dL RDW 13.0 (11.5-15.5) % Plt Count 229 (150-450) k/uL MPV 9.7 Neutrophils % 86 % Lymphocytes % 10 % Monocytes % 2 % Eosinophils % 0 % Basophils % 0 % Neutrophils # 13.0 H (1.3-7.7) k/uL Lymphocytes # 1.5 (1.0-4.8) k/uL Monocytes # 0.4 (0-1.0) k/uL Eosinophils # 0.1 (0-0.7) k/uL Basophils # 0.1 (0-0.2) k/uL PT 10.5 (9.0-12.0) sec INR 1.0 (<1.2) APTT 22.1 (22.0-30.0) sec Sodium (137-145) mmol/L Potassium (3.5-5.1) mmol/L Chloride (98-107) mmol/L Carbon Dioxide (22-30) mmol/L Anion Gap mmol/L BUN (7-17) mg/dL Creatinine (0.52-1.04) mg/dL Est GFR (CKD-EPI)AfAm (>60 ml/min/1.73 sqM) Est GFR (CKD-EPI)NonAf (>60 ml/min/1.73 sqM) Glucose (74-99) mg/dL Calcium (8.4-10.2) mg/dL Troponin I (0.000-0.034) ng/mL Blood Type Blood Type Confirm O Negative Blood Type Recheck Bld Type Recheck Status Antibody Screen Spec Expiration Date 06/23/21 06/23/21 06/23/21 Range/Units 22:00 22:00 22:00 WBC (3.8-10.6) k/uL RBC (3.80-5.40) m/uL Hgb (11.4-16.0) gm/dL Hct (34.0-46.0) % MCV (80.0-100.0) fL MCH (25.0-35.0) pg MCHC (31.0-37.0) g/dL RDW (11.5-15.5) % Plt Count (150-450) k/uL MPV Neutrophils % % Lymphocytes % % Monocytes % % Eosinophils % % Basophils % % Neutrophils # (1.3-7.7) k/uL Lymphocytes # (1.0-4.8) k/uL Monocytes # (0-1.0) k/uL Eosinophils # (0-0.7) k/uL Basophils # (0-0.2) k/uL PT (9.0-12.0) sec INR (<1.2) APTT (22.0-30.0) sec Sodium 133 L (137-145) mmol/L Potassium 4.7 (3.5-5.1) mmol/L Chloride 107 (98-107) mmol/L Carbon Dioxide 18 L (22-30) mmol/L Anion Gap 8 mmol/L BUN 9 (7-17) mg/dL Creatinine 0.66 (0.52-1.04) mg/dL Est GFR (CKD-EPI)AfAm >90 (>60 ml/min/1.73 sqM) Est GFR (CKD-EPI)NonAf >90 (>60 ml/min/1.73 sqM) Glucose 135 H (74-99) mg/dL Calcium 8.6 (8.4-10.2) mg/dL Troponin I <0.012 (0.000-0.034) ng/mL Blood Type O Negative Blood Type Confirm Blood Type Recheck No Previous Record Bld Type Recheck Status CABO Indicated Antibody Screen NEGATIVE Spec Expiration Date 06/26/2021 - 2299 - EKG Data -: EKG Interpreted by Me EKG shows normal: sinus rhythm, intervals (Normal), ST-T waves (Possible inferior ischemia.) Rate: normal (Rate 90 bpm) Disposition Clinical Impression: Uterine mass, Post-menopausal bleeding Disposition: HOME SELF-CARE Condition: Good Instructions (If sedation given, give patient instructions): Dysfunctional Uterine Bleeding (ED) Additional Instructions: As we discussed, follow-up with the sanding line operator to have further evaluation of the mass on the uterus. Return here if there is any difficulty with this plan or any new symptoms develop. Is patient prescribed a controlled substance at d/c from ED?: No Referrals: Larry Sandra MD [Primary Care Provider] - 1-2 days Mirian Oneil MD [STAFF PHYSICIAN] - 1-2 days
[2021-06-23 22:12] LABS: Basophils # (A) 0.1 k/uL (0-0.2); Basophils % (A) 0 %; Eosinophils # (A) 0.1 k/uL (0-0.7); Eosinophils % (A) 0 %; HCT 39.4 % (34.0-46.0); Lymphocytes # (A) 1.5 k/uL (1.0-4.8); Lymphocytes % (A) 10 %; MCH 32.6 pg (25.0-35.0); MCHC 33.1 g/dL (31.0-37.0); MCV 98.7 fL (80.0-100.0); Mean Platelet Volume 9.7; Monocytes # (A) 0.4 k/uL (0-1.0); Monocytes % (A) 2 %; Neutrophils % (A) 86 %; Platelet Count 229 k/uL (150-450); RBC 3.99 m/uL (3.80-5.40); WBC 15.2 k/uL (3.8-10.6)
[2021-06-23 22:20] LABS: African American GFR (CKD) >90 (>60 ml/min/1.73 sqM); Anion Gap 8 mmol/L; Blood Urea Nitrogen 9 mg/dL (7-17); Calcium 8.6 mg/dL (8.4-10.2); Carbon Dioxide 18 mmol/L (22-30); Chloride 107 mmol/L (98-107); Glucose 135 mg/dL (74-99); Non-African American GFR(CKD) >90 (>60 ml/min/1.73 sqM); Potassium 4.7 mmol/L (3.5-5.1); Sodium 133 mmol/L (137-145)
[2021-06-23 22:26] LABS: Partial Thromboplastin Time 22.1 sec (22.0-30.0); Prothrombin Time 10.5 sec (9.0-12.0)
[2021-06-23] MEDS ORDERED: TRANEXAMIC ACID 1,000 MG in SODIUM CHLORIDE 0.9% 100 ML IVPB ONE (22:43)
[2021-06-23 22:49] VITALS: RESP 18
--- NOTE | 2021-06-23 23:58 | US ---
EXAMINATION TYPE: US pelvis complete transvag DATE OF EXAM: 06/23/2021 COMPARISON: 2014 CLINICAL HISTORY: post-menopausal bleeding. Post menopausal bleeding x 1 day, 2, para 2, hist ory of 2 c-sections and tubal ligation TECHNIQUE: Transvaginal ER exam Date of LMP: 9 years ago EXAM MEASUREMENTS: Uterus: 10.6 x 4.4 x 4.5 cm Endometrial Stripe: 2.0 cm Right Ovary: not seen Left Ovary: not seen Difficult and limited study due to patient body habitus and uterine position 1. Uterus: 3.9cm complex hypoechoic area 2. Endometrium: thickened 3. Right Ovary: not seen due to overlying bowel gas 4. Left Ovary: not seen due to overlying bowel gas 5. Bilateral Adnexa: wnl 6. Posterior cul-de-sac: wnl IMPRESSION: There is a 4 cm predominantly solid area in the lower uterine segment and cervix that could be a tumo r mass. Correlation with the vaginal exam recommended. No evidence of uterine fundal mass. No free fl uid. Ovaries not seen.
[2021-06-24] MEDS ORDERED: MORPHINE SULFATE 4 MG/ML SYRINGE IV STA (00:42)
[2021-06-24] MEDS ORDERED: KETOROLAC 15 MG/ML 1 ML VIAL IVP STA (00:42)
[2021-06-24 01:19] VITALS: BP 171/98; PULSE 71
== END 2021-06-24 01:50 | disposition home or self-care (01) ==
LOC: EC 20:05
DX: N85.8 Other specified noninflammatory disorders of uterus (principal); N95.0 Postmenopausal bleeding; J44.9 Chronic obstructive pulmonary disease, unspecified; E78.5 Hyperlipidemia, unspecified; I10 Essential (primary) hypertension; F17.200 Nicotine dependence, unspecified, uncomplicated; Z88.5 Allergy status to narcotic agent; Z86.73 Personal history of transient ischemic attack (TIA), and cerebral infarction without residual deficits; Z90.49 Acquired absence of other specified parts of digestive tract
CPT/HCPCS: 99284; 96365; 96375 ×2; 36415; 93005; 86900; 86901; 80048; 84484; 85025; 85610; 85730; 86850; 76830; J2270; J1885

== ENCOUNTER → 2021-08-11 | Outpatient (CLI) | payer OTHER ==
[2021-08-11 15:29] LABS: Basophils # (A) 0.09 X 10*3/uL (0.00-0.10); Basophils % (A) 0.9 %; Eosinophils # (A) 0.19 X 10*3/uL (0.04-0.35); HCT 50.9 % (37.2-46.3); HGB 15.4 g/dL (12.0-15.0); Immature Grans, Automated 0.3 %; Lymphocytes # (A) 2.46 X 10*3/uL (0.90-5.00); Lymphocytes % (A) 25.8 %; MCHC 30.3 g/dL (32.0-37.0); MCV 95.9 fL (80.0-97.0); Mean Platelet Volume 11.7 fL (9.5-12.2); Monocytes # (A) 0.67 X 10*3/uL (0.20-1.00); NRBC Per 100 WBC 0 /100 WBCS (0.0-0.0); Neutrophils # (A) 6.08 X 10*3/uL (1.80-7.70); Platelet Count 298 X 10*3/uL (140-440); RBC 5.31 X 10*6/uL (4.10-5.20); RDW 12.5 % (11.5-14.5); WBC 9.52 X 10*3/uL (4.50-10.00)
== END | disposition home or self-care (01) ==
LOC: LABPAT 09:34
PROVIDERS: ATTEND Obstetrics & Gynecology
DX: Z01.812 Encounter for preprocedural laboratory examination (principal); N95.0 Postmenopausal bleeding; D25.9 Leiomyoma of uterus, unspecified
CPT/HCPCS: 36415; 85025